=== PATIENT | male | born 1960 | race Caucasian/White ===

== ENCOUNTER 2016-07-15 08:53 | Emergency (ER) | payer OTHER ==
[~2016-07-15] VITALS: Ht 175.3 cm; Wt 133.0 kg
[2016-07-15] MEDS ORDERED: SULFASALAZINE500 MG PO (09:42)
[2016-07-15] MEDS ORDERED: WARFARIN SODIUM5 MG PO (09:43)
[2016-07-15] MEDS ORDERED: FUROSEMIDE40 MG PO (09:44)
[2016-07-15] MEDS ORDERED: TRAMADOL HCL50 MG PO (09:44)
[2016-07-15] MEDS ORDERED: PREDNISONE5 MG PO (09:45)
[2016-07-15] MEDS ORDERED: KEFLEX500 MG PO (10:22)
[2016-07-15 11:50] VITALS: BP 147/90
== END 2016-07-15 11:50 | disposition home or self-care (01) ==
LOC: EME 08:53
PROC: 0HQGXZZ Repair Left Hand Skin, External Approach (ICD-10-PCS; principal; 2016-07-15)
DX: S61.215A Laceration without foreign body of left ring finger without damage to nail, initial encounter (principal); S61.217A Laceration without foreign body of left little finger without damage to nail, initial encounter; W31.89XA Contact with other specified machinery, initial encounter; Y99.0 Civilian activity done for income or pay; D68.9 Coagulation defect, unspecified; Z86.711 Personal history of pulmonary embolism; Z79.01 Long term (current) use of anticoagulants
CPT/HCPCS: 73130; 99281; 99284; J0690; S0020